=== PATIENT | female | born 1945 | race Caucasian/White ===

== ENCOUNTER 2023-07-17 10:46 | Outpatient (CLI) | payer MEDICARE, BC ==
[2023-07-17 11:42] LABS: ALT (SGPT) 12 U/L (8-55); AST (SGOT) 18 U/L (5-34); Albumin 3.9 g/dL (3.4-4.8); Alkaline Phosphatase 88 U/L (40-110); Anion Gap 12 mmol/L (10-20); BUN (Urea Nitrogen) 15 mg/dL (9.8-20.1); Bilirubin, Total 0.5 mg/dL (0.2-1.2); Calc. Creatinine Clearance 0 mL/min (70-130); Calcium 9.3 mg/dL (7.8-10.44); Carbon Dioxide 23 mmol/L (23-31); Cardiac Risk 3.6 (Less than 4.5); Chloride 107 mmol/L (98-107); Cholesterol 172 mg/dl (< 200 Desired); Estimated GFR 51; Globulin 3.3 g/dL (2.4-3.5); Glucose 93 mg/dL (83-110); HDL Cholesterol 48 mg/dL (>60 Neg Risk); LDL Cholesterol, Calculated 103 mg/dL; Potassium 3.6 mmol/L (3.5-5.1); Protein, Total 7.2 g/dL (5.8-8.1); Sodium 138 mmol/L (136-145); Triglycerides 107 mg/dL (Less than 150)
[2023-07-17 11:54] LABS: #Basophils 0.1 thou/uL (0.0-0.2); #Eosinphils 0.2 thou/uL (0.0-0.7); #Lymphocytes 2.2 thou/uL (1.20-3.40); #Monocytes 0.4 thou/uL (0.11-0.59); #Neutrophils 5.3 thou/uL (1.40-6.50); %Basophils 1.1 % (0.0-1.0); %Eosinophils 1.9 % (0.0-10.0); %Lymphocytes 27.2 % (21.0-51.0); %Monocytes 4.5 % (0.0-10.0); %Neutrophils 65.2 % (42.0-75.0); Hematocrit 40.5 % (36.0-47.0); Hemoglobin 12.8 g/dL (12.0-16.0); Mean Corpuscular HGB CONC 31.7 g/dL (32.0-36.0); Mean Corpuscular Hemoglobin 30.3 pg (27.0-31.0); Mean Corpuscular Volume 95.8 fl (78.0-98.0); Mean Platelet Volume 8.1 fL (7.4-10.4); Platelet Count 279 10x3/uL (130-400); RBC Distribution Width 12.2 % (11.5-14.5); Red Blood Cell (RBC) Count 4.23 mill/uL (4.20-5.40); White Blood Cell (WBC) Count 8.2 10x3/uL (4.8-10.8)
[2023-07-17 18:54] LABS: Iron 95 ug/dL (50-170); Iron Binding Capacity, Total 329 mcg/dL (265-497)
[2023-07-17 19:04] LABS: Ferritin 155.43 ng/mL (10-291); Free T4 (Free Thyroxine) 1.05 ng/dL (0.70-1.48)
== END 2023-07-17 10:47 | disposition home or self-care (01) ==
LOC: MADLAB 10:46
PROVIDERS: ATTEND Family Medicine
DX: D50.9 Iron deficiency anemia, unspecified (principal); E78.5 Hyperlipidemia, unspecified; E03.9 Hypothyroidism, unspecified
CPT/HCPCS: 36415; 80053; 80061; 82728; 83540; 83550; 84439; 84443; 84480; 85025; 85046

== ENCOUNTER 2025-07-24 12:13 | Outpatient (CLI) | payer MEDICARE, BC ==
[2025-07-24 12:47] LABS: #Basophils 0.1 thou/uL (0.0-0.2); #Eosinophils 0.2 thou/uL (0.0-0.7); #Lymphocytes 2.3 thou/uL (1.20-3.40); #Monocytes 0.5 thou/uL (0.11-0.59); #Neutrophils 7.2 thou/uL (1.40-6.50); %Basophils 1.1 % (0.0-1.0); %Eosinophils 1.7 % (0.0-10.0); %Lymphocytes 22.4 % (21.0-51.0); %Monocytes 4.5 % (0.0-10.0); %Neutrophils 70.3 % (42.0-75.0); Hematocrit 37.7 % (36.0-47.0); Hemoglobin 11.8 g/dL (12.0-16.0); Mean Corpuscular Hemoglobin 29.5 pg (27.0-31.0); Mean Corpuscular Volume 94.4 fl (78.0-98.0); Platelet Count 302 10x3/uL (130-400); Red Blood Cell (RBC) Count 4.00 mill/uL (4.20-5.40); White Blood Cell (WBC) Count 10.3 10x3/uL (4.8-10.8)
[2025-07-24 13:35] LABS: Cardiac Risk 3.6 (Less than 4.5); Cholesterol 135.0 mg/dl (< 200 Desired); HDL Cholesterol 38.0 mg/dL (>60 Neg Risk); LDL Cholesterol, Calculated 62.0 mg/dL; Triglycerides 176.0 mg/dL (Less than 150)
[2025-07-24 16:59] LABS: Iron 52.0 ug/dL (50-170); Iron Binding Capacity, Total 298.0 mcg/dL (265-497)
[2025-07-24 17:09] LABS: Ferritin 165.47 ng/mL (10-291); T4 8.94 ug/dL (4.87-11.72)
== END 2025-07-24 12:14 | disposition home or self-care (01) ==
LOC: MADLAB 12:13
PROVIDERS: ATTEND Family Medicine
DX: E78.5 Hyperlipidemia, unspecified (principal); E03.9 Hypothyroidism, unspecified; D50.9 Iron deficiency anemia, unspecified
CPT/HCPCS: 36415; 80061; 82728; 83540; 83550; 84436; 84443; 84480; 85025; 85046